=== PATIENT | male | born 1965 ===

== ENCOUNTER 2019-10-25 07:14 | Outpatient (CLI) | payer OTHER ==
[~2019-10-25 07:14] MED LIST: NABUMETONE750 MG PO; VOLTAREN100 GM TOP
== END 2019-10-25 07:17 | disposition home or self-care (01) ==
LOC: RAD 07:14
DX: M54.5 Low back pain (principal); R07.89 Other chest pain

== ENCOUNTER 2022-03-03 09:04 | Outpatient (CLI) | payer OTHER | END 2022-03-03 09:05 | disposition home or self-care (01) | LOC: LAB 09:04 | PROVIDERS: ATTEND General Practice | DX: Z76.0 Encounter for issue of repeat prescription (principal); R51.9 Headache, unspecified; M54.2 Cervicalgia; G47.9 Sleep disorder, unspecified; Z13.89 Encounter for screening for other disorder; R06.02 Shortness of breath ==

== ENCOUNTER → 2022-03-03 | Outpatient (CLI) | payer OTHER | END | disposition home or self-care (01) | LOC: TOM 09:49 | PROVIDERS: ATTEND General Practice | DX: R06.02 Shortness of breath (principal); Z76.0 Encounter for issue of repeat prescription; R51.9 Headache, unspecified; M54.2 Cervicalgia; Z13.89 Encounter for screening for other disorder ==

== ENCOUNTER 2023-03-04 07:16 | Outpatient (CLI) | payer OTHER | END 2023-03-04 07:19 | disposition home or self-care (01) | LOC: SONOGRAMA 07:16 | PROVIDERS: ATTEND General Practice | DX: M25.572 Pain in left ankle and joints of left foot (principal); M25.571 Pain in right ankle and joints of right foot; S86.091A Other specified injury of right Achilles tendon, initial encounter; Z12.5 Encounter for screening for malignant neoplasm of prostate; M79.675 Pain in left toe(s); M79.672 Pain in left foot ==

== ENCOUNTER → 2024-11-24 06:18 | Outpatient (CLI) | payer OTHER ==
[2024-11-24 07:13] LABS: HEMOGLOBIN 16.2 g/dL (13-16.00); MEAN CORPUSCULAR HGB CONC 33.7 g/dl (32.0-36.0); PLATELET COUNT 154 K/uL (150-450); RED CELL DISTRIBUTION WIDTH 14.1 % (11.5-14.5)
[2024-11-24 07:21] LABS: ERYTHROCYTE SEDIMENTATION RATE 6 mm/hr
[2024-11-24 08:08] LABS: ALBUMIN 3.8 gm/dL (3.4-5.0); BILIRUBIN TOTAL 0.63 mg/dL (0.3-1.2); CALCIUM 8.9 mg/dL (8.5-10.1); CREATININE SERUM 1.39 mg/dL (0.70-1.30); GFR 52.3; GLOBULINA 3.4 G/DL (2.4-3.5); POTASSIUM 4.2 mEq/L (3.5-5.1); TOTAL PROTEIN 7.2 gm/dL (6.4-8.2); URIC ACID 7.5 mg/dL (3.5-8.5)
== END | disposition home or self-care (01) ==
LOC: LAB 06:18
PROVIDERS: ATTEND Podiatrist Foot & Ankle Surgery
DX: M10.072 Idiopathic gout, left ankle and foot (principal)

== ENCOUNTER 2024-11-24 07:13 | Outpatient (CLI) | payer OTHER | END 2024-11-24 07:21 | disposition home or self-care (01) | LOC: RAD 07:13 | PROVIDERS: ATTEND Podiatrist Foot & Ankle Surgery | DX: M10.072 Idiopathic gout, left ankle and foot (principal); M25.572 Pain in left ankle and joints of left foot ==

== ENCOUNTER 2024-12-07 06:23 | Outpatient (CLI) | payer OTHER | END 2024-12-07 06:28 | disposition home or self-care (01) | LOC: LAB 06:23 | PROVIDERS: ATTEND Podiatrist Foot & Ankle Surgery | DX: M10.072 Idiopathic gout, left ankle and foot (principal) ==

== ENCOUNTER 2025-03-05 10:23 | Outpatient (CLI) | payer OTHER | END 2025-03-05 10:35 | disposition home or self-care (01) | LOC: MRI 10:23 | DX: M25.561 Pain in right knee (principal); R60.0 Localized edema; I10 Essential (primary) hypertension | CPT/HCPCS: 73721 ==